=== PATIENT | male | born 1995 | race Caucasian/White ===

== ENCOUNTER 2021-10-05 22:32 | Inpatient (IN) | payer SELFPAY ==
[2021-10-05] MEDS ORDERED: MORPHINE 4 MG/ML SYR ONE (23:41)
[2021-10-05] MEDS ORDERED: ONDANSETRON 4 MG/2 ML VIAL ONE (23:41)
[2021-10-05 23:43] LABS: Absolute Lymphocytes (CBC) 2.5 K/uL (0.7-4.9); Hematocrit 42.7 % (39.6-49.0); Lymphocytes % 18.5 % (15.3-44.8); MPV 7.7 fL (7.6-11.3); RBC Red Blood Cell Count 4.61 M/uL (4.33-5.43)
[2021-10-05 23:55] LABS: Bilirubin Total 0.3 mg/dL (0.2-1.0); Potassium 3.5 mmol/L (3.5-5.1); Protein, Total 7.1 g/dL (6.4-8.2)
[2021-10-06] MEDS ORDERED: NA CHLORIDE 0.9% 100 ML IV ONE (01:10)
[2021-10-06] MEDS ORDERED: PIPERACIL/TAZO 3.375 GM VIAL IV ONE ×2 (01:10→08:03)
--- NOTE | 2021-10-06 01:14 | ER ---
Nurse's Notes [facility] [place] Name: Jared Cochran Age: 25 yrs Sex: Male : 1995 Arrival Date: 10/05/2021 Time: 22:35 Bed 23 Private MD: Diagnosis: Unspecified acute appendicitis Presentation: 10/05 23:00 Chief complaint: Patient states: I am having right lower quadrant pain that started jb4 about an 1.5 hours ago. I was worried I might have appendicitis. I also have not had a BM today and normally I go daily. Coronavirus screen: At this time, the client does not indicate any symptoms associated with coronavirus-19. Ebola Screen: No symptoms or risks identified at this time. Initial Sepsis Screen: Does the patient meet any 2 criteria? No. Patient's initial sepsis screen is negative. Does the patient have a suspected source of infection? Yes: Acute abdominal pain. Risk Assessment: Do you want to hurt yourself or someone else? Patient reports no desire to harm self or others. Onset of symptoms was October 05, 2021. Transition of care: patient was not received from another setting of care. 23:00 Method Of Arrival: Ambulatory jb4 23:00 Acuity: ALAN 3 jb4 Historical: - Allergies: 23:02 No Known Allergies; jb4 - Home Meds: 23:02 None [Active]; jb4 - PMHx: 23:02 None; jb4 - PSHx: 23:02 Right hand; jb4 - Immunization history:: Adult Immunizations not up to date. - Social history:: Smoking status: Patient denies any tobacco usage or history of. Patient uses alcohol, occasionally. - Family history:: not pertinent. - Hospitalizations: : No recent hospitalization is reported. Screenin:00 Abuse screen: Denies threats or abuse. Nutritional screening: No deficits noted. jb4 Tuberculosis screening: No symptoms or risk factors identified. 23:00 Fall Risk None identified. jb4 Assessment: 23:00 General: Appears in no apparent distress. uncomfortable, Behavior is calm, cooperative, jb4 appropriate for age. Pain: Complains of pain in right lower quadrant Pain does not radiate. Pain currently is 9 out of 10 on a pain scale. Neuro: Level of Consciousness is awake, alert, obeys commands, Oriented to person, place, time, situation. Cardiovascular: Patient's skin is warm and dry. Respiratory: Airway is patent Respiratory effort is even, unlabored, Respiratory pattern is regular, symmetrical. GI: Abdomen is flat, non-distended, Reports lower abdominal pain, constipation. : No signs and/or symptoms were reported regarding the genitourinary system. EENT: No signs and/or symptoms were reported regarding the EENT system. Derm: Skin is intact, Skin is pink, warm \T\ dry. Musculoskeletal: Circulation, motion, and sensation intact. Range of motion: intact in all extremities. 10/06 00:00 Reassessment: Patient appears in no apparent distress at this time. Patient and/or jb4 family updated on plan of care and expected duration. Pain level reassessed. Patient is alert, oriented x 3, equal unlabored respirations, skin warm/dry/pink. 01:00 Reassessment: Patient appears in no apparent distress at this time. Patient and/or jb4 family updated on plan of care and expected duration. Pain level reassessed. Patient is alert, oriented x 3, equal unlabored respirations, skin warm/dry/pink. 01:52 Reassessment: Patient appears in no apparent distress at this time. Patient and/or jb4 family updated on plan of care and expected duration. Pain level reassessed. Patient is alert, oriented x 3, equal unlabored respirations, skin warm/dry/pink. Vital Signs: 10/05 23:00 BP 136 / 92; Pulse 75; Resp 16; Temp 98.3(TE); Pulse Ox 98% on R/A; Weight 124.74 kg [facility] (R); Height 6 ft. 4 in. (193.04 cm) (R); Pain 02/05; 10/06 00:15 BP 137 / 91; Pulse 78; Resp 16; Pulse Ox 99% on R/A; jb4 01:20 BP 136 / 75; Pulse 61; Resp 18; Pulse Ox 98% on R/A; jb4 10/05 23:00 Body Mass Index 33.47 (124.74 kg, 193.04 cm) [facility] ED Course: 10/05 22:35 Patient arrived in ED. ja2 22:47 Kyle Garcia MD is Attending Physician. rn 22:59 Attila Mehta RN is Primary Nurse. jb4 23:00 Patient has correct armband on for positive identification. Bed in low position. Call 4 light in reach. Side rails up X 1. Client placed on continuous cardiac and pulse oximetry monitoring. NIBP monitoring applied. 23:02 Triage completed. jb4 23:02 Arm band placed on right wrist. jb4 23:25 Initial lab(s) drawn, by me, sent to lab. Inserted saline lock: 18 gauge in right 4 antecubital area, using aseptic technique. Blood collected. 10/06 00:12 CT Abd/Pelvis - IV Contrast Only In Process Unspecified. EDMS 01:13 Guzman Vanegas MD is Hospitalizing Provider. rn 01:53 No provider procedures requiring assistance completed. Patient admitted, IV remains in jb4 place. Administered Medications: 10/05 23:37 Drug: Zofran (Ondansetron) 4 mg Route: IVP; Site: right antecubital; [facility] 10/06 01:02 Follow up: Response: No adverse reaction; Marked relief of symptoms [facility] 10/05 23:45 Drug: morphine 4 mg Route: IVP; Site: right antecubital; 4 10/06 01:01 Follow up: Response: No adverse reaction; Marked relief of symptoms jb4 01:27 Drug: Zosyn (piperacillin-tazobactam) 3.375 grams Route: IVPB; Infused Over: 60 mins; [facility] Site: right antecubital; 02:27 Follow up: Response: No adverse reaction; IV Status: Completed infusion; IV Intake: jb 100ml Intake: 02:27 IV: 100ml; Total: 100ml. [facility] Outcome: 01:13 Decision to Hospitalize by Provider. rn 01:53 Admitted to ER Hold. Please see [facility] for further documentation. jb4 01:53 Condition: stable 01:53 Discharge instructions given to patient, Instructed on the need for admit, Demonstrated understanding of instructions. 09:10 Patient left the ED. ss Signatures: Dispatcher [employer] EDIA Kyle Garcia MD MD rn Smirch, Shelby, RN RN Attila Crespo RN RN jb4 Corinne Jules
--- NOTE | 2021-10-06 01:14 | EDPHYS ---
Physician Documentation [facility] Name: Jared Cochran Age: 25 yrs Sex: Male : 1995 Arrival Date: 10/05/2021 Time: 22:35 Bed 23 Private MD: ED Physician Kyle Garcia HPI: 10/05 23:42 This 25 yrs old Male presents to ER via Ambulatory with complaints of RLQ abd pain. rn 23:42 The patient presents with abdominal pain right lower quadrant. Onset: The rn symptoms/episode began/occurred 2 hour(s) ago. The symptoms do not radiate. Associated signs and symptoms: Pertinent negatives: nausea and vomiting, anorexia, blood in stools, chest pain, constipation, diarrhea, dysuria, fever, hematuria, testicular pain. The symptoms are described as sharp, stabbing. Modifying factors: The symptoms are alleviated by nothing, the symptoms are aggravated by movement, touching the area. Severity of pain: At its worst the pain was moderate in the emergency department the pain is unchanged. The patient has not experienced similar symptoms in the past. The patient has not recently seen a physician. Historical: - Allergies: 23:02 No Known Allergies; jb4 - Home Meds: 23:02 None [Active]; jb4 - PMHx: 23:02 None; jb4 - PSHx: 23:02 Right hand; jb4 - Immunization history:: Adult Immunizations not up to date. - Social history:: Smoking status: Patient denies any tobacco usage or history of. Patient uses alcohol, occasionally. - Family history:: not pertinent. - Hospitalizations: : No recent hospitalization is reported. ROS: 23:42 Constitutional: Negative for fever, chills, and weight loss, Eyes: Negative for injury, rn pain, redness, and discharge, Neck: Negative for injury, pain, and swelling, Cardiovascular: Negative for chest pain, palpitations, and edema, Respiratory: Negative for shortness of breath, cough, wheezing, and pleuritic chest pain, Abdomen/GI: + RLQ abd pain, neg for nausea/vomiting/diarrhea Back: Negative for injury and pain, : Negative for injury, bleeding, discharge, and swelling, MS/Extremity: Negative for injury and deformity, Skin: Negative for injury, rash, and discoloration, Neuro: Negative for headache, weakness, numbness, tingling, and seizure. Exam: 23:42 Constitutional: This is a well developed, well nourished patient who is awake, alert, rn and in no acute distress. Head/Face: Normocephalic, atraumatic. Cardiovascular: Regular rate and rhythm. No pulse deficits. Respiratory: No increased work of breathing, no retractions or nasal flaring. Abdomen/GI: soft, + RLQ tenderness with guarding, no rebound, no masses Skin: Warm, dry MS/ Extremity: Pulses equal, no cyanosis. Neuro: Awake and alert, GCS 15 Vital Signs: 23:00 BP 136 / 92; Pulse 75; Resp 16; Temp 98.3(TE); Pulse Ox 98% on R/A; Weight 124.74 kg jb4 (R); Height 6 ft. 4 in. (193.04 cm) (R); Pain 02/05; 10/06 00:15 BP 137 / 91; Pulse 78; Resp 16; Pulse Ox 99% on R/A; jb4 01:20 BP 136 / 75; Pulse 61; Resp 18; Pulse Ox 98% on R/A; jb4 10/05 23:00 Body Mass Index 33.47 (124.74 kg, 193.04 cm) jb4 MDM: 10/05 22:47 Patient medically screened. rn 10/06 01:13 Differential diagnosis: appendicitis. Data reviewed: vital signs, nurses notes, label designer test result(s), radiologic studies, CT scan, and as a result, I will admit patient. Counseling: I had a detailed discussion with the patient and/or guardian regarding: the historical points, exam findings, and any diagnostic results supporting the discharge/admit diagnosis, lab results, radiology results, the need for further work-up and treatment in the hospital. Response to treatment: the patient's symptoms have markedly improved after treatment, and as a result, I will admit patient. Admission orders: after a detailed discussion of the patient's condition and case, the admit orders are written by me. 10/05 23:15 Order name: CBC with Diff; Complete Time: 00:19 rn 10/05 23:15 Order name: CMP; Complete Time: 00:19 rn 10/05 23:15 Order name: Lipase; Complete Time: 00:19 rn 10/06 01:13 Order name: SARS-COV-2 RT PCR (Document "Date of Onset" if Symptomatic) rn 10/06 01:38 Order name: CREATININE WHOLE BLOOD EDMS 10/06 01:40 Order name: CREATININE WHOLE BLOOD EDMS 10/05 23:15 Order name: CT Abd/Pelvis - IV Contrast Only rn 10/05 23:15 Order name: IV Saline Lock; Complete Time: 23:32 rn 10/05 23:15 Order name: Labs collected and sent; Complete Time: 23:32 rn 10/06 01:01 Order name: NPO; Complete Time: 01:01 rn Administered Medications: 10/05 23:37 Drug: Zofran (Ondansetron) 4 mg Route: IVP; Site: right antecubital; [facility] 10/06 01:02 Follow up: Response: No adverse reaction; Marked relief of symptoms [facility] 10/05 23:45 Drug: morphine 4 mg Route: IVP; Site: right antecubital; 4 10/06 01:01 Follow up: Response: No adverse reaction; Marked relief of symptoms [facility] 01:27 Drug: Zosyn (piperacillin-tazobactam) 3.375 grams Route: IVPB; Infused Over: 60 mins; 4 Site: right antecubital; 02:27 Follow up: Response: No adverse reaction; IV Status: Completed infusion; IV Intake: jb4 100ml Disposition Summary: 10/06/21 01:13 Hospitalization Ordered Hospitalization Status: Inpatient Admission rn Provider: Guzman Vanegas rn Condition: Stable rn Problem: new rn Symptoms: have improved rn Bed/Room Type: Standard rn Location: [facility] ER HOLD(10/06/21 01:46) Room Assignment: ERHOLD-(10/06/21 01:46) Diagnosis - Unspecified acute appendicitis rn Forms: - Medication Reconciliation Form rn - SBAR form rn Signatures: Dispatcher [employer] EDOR Tanika Grajeda RN RN mw Nieto, Roman, MD MD rn Bryson, James, RN RN jb4 Corrections: (The following items were deleted from the chart) 01:10/05 23:15 Urine Dipstick-Ancillary ordered. [facility] 10/06 01:46 01:13 Telemetry/MedSurg (Inpatient) [facility] 01:46 01:13 rn truman
[2021-10-06 02:32] VITALS: BMI 33.2
[2021-10-06] MEDS ORDERED: D5 0.45 NS 1,000 ML IV SCH (03:00)
[2021-10-06] MEDS ORDERED: MORPHINE 4 MG/ML SYR IV PRN (04:00)
[2021-10-06] MEDS ORDERED: ONDANSETRON 4 MG/2 ML VIAL IV PRN (04:00)
[2021-10-06] MEDS ORDERED: Ringers Lactate 1,000 ML IV ONE ×2 (07:55→09:06)
[2021-10-06] MEDS ORDERED: ROCURONIUM 50 MG/5 ML VIAL IV ONE (07:57)
[2021-10-06] MEDS ORDERED: dexAMETHasone 10 MG/ML VIAL ONE (07:57)
[2021-10-06] MEDS ORDERED: FENTANYL CITR 250 MCG/5 ML ONE (07:57)
[2021-10-06] MEDS ORDERED: propofoL 200 MG/20 ML VIAL IV ONE (07:57)
[2021-10-06] MEDS ORDERED: MIDAZOLAM HCL 2 MG/2 ML INJ ONE (07:57)
[2021-10-06] MEDS ORDERED: LIDOCAINE 2% MPF 5 ML VIAL ONE (07:57)
[2021-10-06] MEDS ORDERED: ONDANSETRON 4 MG/2 ML VIAL ONE (07:57)
[2021-10-06] MEDS ORDERED: NA CHLORIDE 0.9% 50 ML ONE (08:03)
[2021-10-06] MEDS: PIPER TAZO 3.375 GM in NA CHLORIDE 0.9% 100 ML IV SCH ×2 (08:17→08:30)
[2021-10-06] MEDS: BUPIVACAINE 0.5% Inj,MDV 50 mL VIAL ONE ×2 (08:18→08:38)
--- NOTE | 2021-10-06 08:57 | P.BOP ---
Preoperative diagnosis: Acute appendicitis Postoperative diagnosis: same Primary procedure: Laparoscopic appendectomy City Driver: FAINA VALE ([employer]) Estimated blood loss: <10cc Specimen: appendix Findings: as above Anesthesia: General Complications: None Transferred to: Recovery Room Condition: Good
[2021-10-06] MEDS ORDERED: PIPER TAZO 3.375 GM in NA CHLORIDE 0.9% 100 ML IV SCH ×2 (09:00→17:00)
[2021-10-06] MEDS ORDERED: NEOSTIGMINE 1 MG/ML -10 ML VIAL ONE (09:01)
[2021-10-06] MEDS ORDERED: KETOROLAC 30 MG/ML INJ ONE (09:01)
[2021-10-06] MEDS ORDERED: GLYCOPYRROLATE 0.2 MG/ML SYR ONE (09:01)
[2021-10-06] MEDS: MEPERIDINE HCL 25 MG/ML SYR ONE ×2 (09:29→09:34)
[2021-10-06 09:48] VITALS: O2SAT 100
[2021-10-06] MEDS ORDERED: HYDROCODONE/APAP 7.5/325 MG TAB PO ONE (10:20)
[2021-10-06] MEDS ORDERED: HYDROCODONE/APAP 7.5/325 MG TAB ONE (10:32)
[2021-10-06 11:04] VITALS: BP 132/85; TEMP 97
--- NOTE | 2021-10-06 12:02 | RAD REPORT ---
EXAM DESCRIPTION: ADDENDUM #1 ADDENDUM: THIS REPORT CONTAINS FINDINGS THAT MAY BE CRITICAL TO PATIENT'S CARE: The findings were verbally discussed via telephone conference with Kyle Garcia by Dr. Richmond on 09/26 12:57 AM CDT. The results were acknowledged and understood. Electronically signed by: Hardeep Richmond DO 10/06/2021 12:57 AM CDT End of Addendum CT Abdomen and Pelvis With Intravenous Contrast CLINICAL HISTORY: The patient is 25 years old and is Male; RLQ abdominal pain TECHNIQUE: Axial computed tomography images of the abdomen and pelvis with intravenous contrast. S agittal and coronal reformatted images were created and reviewed. This CT exam was performed using one or more of the following dose reduction techniques: automated exposure control, adjustment of t he mA and/or kV according to patient size, and/or use of iterative reconstruction technique. Delayed images were performed. DLP: 2579 mGy*cm COMPARISON: None. FINDINGS: LUNG BASES: Bibasilar atelectasis. No focal consolidation. HEART: Visualized heart is normal. ABDOMEN: LIVER: Hepatic steatosis. GALLBLADDER AND BILE DUCTS: Unremarkable. No calcified stones. No ductal dilation. PANCREAS: Unremarkable. No mass. No ductal dilation. SPLEEN: Unremarkable. No splenomegaly. ADRENALS: Unremarkable. No mass. KIDNEYS AND URETERS: Unremarkable. No solid mass. No hydronephrosis. STOMACH AND BOWEL: Unremarkable. No obstruction. No mucosal thickening. PELVIS: APPENDIX: Diffuse thickening of the proximal appendix measuring 1.1 cm with mucosal enhancement an d periappendiceal stranding. BLADDER: Unremarkable. No mass. REPRODUCTIVE: Unremarkable as visualized. ABDOMEN and PELVIS: INTRAPERITONEAL SPACE: Unremarkable. No free air. No significant fluid collection. BONES/JOINTS: Lower lumbar degenerative changes. No acute fracture. No dislocation. SOFT TISSUES: Unremarkable. VASCULATURE: Unremarkable. No abdominal aortic aneurysm. LYMPH NODES: Unremarkable. No enlarged lymph nodes. IMPRESSION: Diffuse thickening of the proximal appendix measuring 1.1 cm with mucosal enhancement an d periappendiceal stranding. Findings compatible with acute appendicitis. No perforation or abscess formation. Electronically signed by: Hardeep Richmond DO 10/06/2021 12:50 AM CDT Due to temporary technical issues with the PACS/Fluency reporting system, reports are being signed by the in house radiologist without review as a courtesy to ensure prompt reporting. The interpreting r adiologist is fully responsible for the content of the report.
--- NOTE | 2021-10-06 19:53 | HP ---
Date of Admission: 10/06/2021 Reason For Service: Right lower quadrant abdominal pain, acute appendicitis. History Of Present Illness: This is the case of a 25-year-old patient, who comes to us complaining o f right lower quadrant abdominal pain, started last night, get worse this morning. He comes to the E , seen by the ER physician, and diagnosed with acute appendicitis and a surgical evaluation was requ ested. He denies any dysuria, hematuria, hematochezia melena. Denies any recent traveling out of [facility]. Denies any family member sick at home. He moved to this area about 3 weeks ago from [place]. Allergies: NONE. Medications: None. Medical History: None. Past Surgical History: Surgeries include a right wrist surgery when the patient had a metal pen and then removed eventually, this was after trauma. Family History: Noncontributory. Social: He does not smoke. He does not drink. Review of Systems: See H and P. Ten points otherwise unremarkable. Physical Examination: General: The patient is awake, alert. HEENT: Pupils are equal and reactive. Anicteric. Neck: Supple. Chest: Clear. Heart: S1, S2. Abdomen: Right lower quadrant tenderness with psoas signs positive. Rectal: Deferred. Extremity: Good capillary refill. Neuro: Cranial nerves 2 through 12 grossly within normal limits. Laboratory Data: WBC count of 13.5, hemoglobin of 14.4, potassium 3.5, and glucose 112. CAT scan of the abdomen and pelvis consistent with acute appendicitis. Assessment: A 25-year-old patient comes to us with right lower quadrant abdominal pain, psoas signs positive, and tender in that area, leukocytosis. CAT scan also suggests possibility of appendicitis. Benefits, alternatives, and risks of laparoscopic possible open appendectomy fully explained, which include, but not limited to infection, bleeding, damage to adjacent structures, anesthesia complicat ion, negative appendix, [place] and even . He also understands this may not relieve any symptoms. H e might need more than one surgical intervention. He is about to sign the consent. The patient was booked emergently in OR. LOUIE/JIMMY Voice ID: [id number]
--- NOTE | 2021-10-07 01:39 | OP ---
Date of Procedure: 10/06/2021 Surgeon: Guzman Vanegas MD Preoperative Diagnosis: Acute appendicitis. Postoperative Diagnosis: Acute appendicitis. Procedure: Laparoscopic appendectomy. Anesthesia: General plus local. Finding: Acute appendicitis. Estimated Blood Loss: Less than 10 cc. Complications: None. Indication: This is a case of a 25-year-old patient who came to us with acute abdominal pain. The p atjean fully explained the option, laparoscopic, possible open appendectomy with benefits, alternativ es, and risks including, but not limited to infection, bleeding, damage to adjacent structures, anest hesia complication, negative appendix, [place], and . He also understands this may not relieve any s ymptoms. He might need more than one surgical intervention. He understood, signed a consent. The p atjean brought to the operating room, placed in supine position. Anesthesia was done without complic ation. Abdominal area was prepped and draped in a sterile fashion Marcaine 0.5% was injected for loc al anesthetic followed by sharp incision of the skin in the infraumbilical region. Incision was juárez ied down to fascia, which was opened under direct vision. Peritoneum was encountered, opened under d irect vision. Vicryl #1 placed inside the fascia. Becka trocar was carefully introduced. Pneumope ritoneum was obtained. I placed two more trocars 5 mm each one of them, one in the suprapubic area, another one in the left lower quadrant using same technique which consisted of local anesthetic, victor hugo p incision of the skin, introduction of the trocars under direct vision. This allowed me to put a gr asper in the mesoappendix, create a window in the base of the appendix which spared from the inflamma tion. The distal appendix looks inflamed. Once we created a window, we dissected out with the Endo- LELAND nonvascular to that area and then we did a Endo-LELAND vascular to the mesoappendix and further hemo stasis was obtained with the help of 5 mm hemoclips. Appendix removed from abdominal cavity using En doCatch through the umbilical incision. Area was irrigated and suctioned. No bleeding. No bowel le ak. At that moment, I proceeded to remove the trocars under direct vision. Deflated pneumoperitoneu m. Closed the fascia with #1 Vicryl, irrigated the subcutaneous tissue, closed it with 3-0 chromic a nd skin with subcuticular closure of 3-0 chromic and Steri-Strips on top. Sponge count and instrumen t counts correct. The patient tolerated the procedure well. Sent to recovery in stable condition. If he can tolerate medication by mouth, he has the option to go home this afternoon and if he goes ho me, follow up in my office in 1 week. Call for appointment [phone]. Medication will include Cipro 500 p.o. q.12 and Vicodin q.4 hours p.r.n. pain. Keep the area dry for 48 hours, then may shower. K eep Steri-Strips intact. No heavy lifting. Follow up in my office this next Monday. If he cannot t olerate pain medication by mouth, then he is welcome to stay overnight for observation and pain contr ol. LOUIE/JIMMY Voice ID: [id number] Report ID: [id number]
== END 2021-10-06 10:53 | disposition home or self-care (01) | DRG 343 ==
LOC: ER 22:32 → ERHOLD 10-06 02:24
PROVIDERS: ADMIT Surgery; ATTEND Surgery
PROC: 0DTJ4ZZ Resection of Appendix, Percutaneous Endoscopic Approach (ICD-10-PCS; principal; 2021-10-06 11:30)
DX: K35.80 Unspecified acute appendicitis (principal); Z20.822 Contact with and (suspected) exposure to COVID-19
CPT/HCPCS: 36415; 74177; 80053; 82565; 83690; 85025; 88304; 96365; 96375; 99285; J1100; J2175; J2250; J2405; J2543; J2704; J2710; J3010; J7120; J7799; Q9967; U0003